=== PATIENT | female | born 1995 | race Caucasian/White ===

== ENCOUNTER 2018-05-30 23:48 | Emergency (ER) | payer OTHER ==
[~2018-05-30] VITALS: Ht 167.6 cm; Wt 140.6 kg
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
[2018-05-31] MEDS ORDERED: HYDROmorphone 2 MG/ML, 1ML ONE (00:29)
[2018-05-31] MEDS ORDERED: ONDANSETRON ODT 4 MG ONE (00:29)
[2018-05-31] MEDS ORDERED: KETOROLAC 30 MG/1 ML ONE (00:29)
[2018-05-31] MEDS ORDERED: KETOROLAC 30 MG/1 ML IM ONE (00:30)
[2018-05-31] MEDS ORDERED: HYDROmorphone 1 MG/ML, 1ML IM ONE (00:30)
[2018-05-31] MEDS ORDERED: ONDANSETRON ODT 4 MG PO ONE (00:30)
[2018-05-31 00:35] LABS: BASOPHILS # (AUTO) 0.06 x10^3/uL (0-0.1); BASOPHILS % (AUTO) 0 % (0-1); EOSINOPHILS # (AUTO) 0.26 x10^3/uL (0-0.4); EOSINOPHILS % (AUTO) 2 % (1-7); LYMPHOCYTES % (AUTO) 27 % (22-44); MD NO; MEAN CORPUSCULAR HEMOGLOBIN 23.7 pg (27.0-34.8); MEAN CORPUSCULAR HGB CONC 32.2 g/dL (32.4-35.8); MEAN CORPUSCULAR VOLUME 73.7 fL (80-100); MEAN PLATELET VOLUME 7.1 fL (7.4-10.4); MONOCYTES # (AUTO) 1.32 x10^3/uL (0.2-0.8); MONOCYTES % (AUTO) 7 % (2-9); NEUTROPHILS % (AUTO) 64 % (42-75); PLATELET COUNT 504 x10^3/uL (130-400); RED BLOOD COUNT 5.25 x10^6/uL (3.82-5.3); RED CELL DISTRIBUTION WIDTH 18.2 % (9.6-15.2)
--- NOTE | 2018-05-31 00:43 | NUR ---
PT AMBULATORY TO RESTROOM WITH STEADY GAITN FOR UA SAMPLE. TO MEDICATE UPON RETURN FOR PAIN
[2018-05-31 00:51] LABS: ALANINE AMINOTRANSFERASE 46 U/L (12-78); ALBUMIN 3.2 g/dL (3.4-5.0); ANION GAP 7 mmol/L (5-15); CALCIUM 8.8 mg/dL (8.5-10.1); CHLORIDE 108 mmol/L (98-107)
[2018-05-31 00:54] LABS: ALKALINE PHOSPHATASE 89 U/L (45-117); BILIRUBIN,TOTAL 0.2 mg/dL (0.2-1.0); TOTAL PROTEIN 8.2 g/dL (6.4-8.2)
--- NOTE | 2018-05-31 00:54 | NUR ---
REPORT FROM [facility]UNC[facility] VENEGAS. UA TAKEN TO LAB. PT RESTING WITH NO NEEDS AT THIS TIME. CALL LIGHT IN REACH
--- NOTE | 2018-05-31 00:54 | NUR ---
PT BACK FROM RESTROOM, CLEAN CATCH UA COLLECTED AND SENT TO LAB. PT MEDICATED NOTED PER ORDER FOR 10/10 LOW BACK PAIN. VSS. CALL LIGHT IN REACH. FALL PRECAUTIONS IN PLACE. FRIENDS AT BEDSIDE. BEDSIDE REPORT AND CARE TO ASHLYN VENEGAS AT THIS TIME.
--- NOTE | 2018-05-31 00:56 | NUR ---
CT PENDING NEG. TEST.
[2018-05-31 01:00] LABS: CULTURE INDICATED? NO; HCG UR SG 1.026 (1.003-1.030); MICROSCOPIC AUTO
[2018-05-31 02:01] VITALS: BP 146/91
--- NOTE | 2018-05-31 02:02 | NUR ---
Patient given discharge instructions and they have confirmed that they understand the instructions. Patient ambulatory with steady gait.
== END 2018-05-31 02:05 | disposition home or self-care (01) ==
LOC: ED 23:59
DX: R31.9 Hematuria, unspecified (principal); I10 Essential (primary) hypertension; Z88.0 Allergy status to penicillin
CPT/HCPCS: 36415; 71045; 74176; 80053; 81001; 81025; 83690; 85025; 96372; 99284; J1170; J1885; Q0162

== ENCOUNTER 2020-01-21 01:10 | Emergency (ER) | payer OTHER ==
[~2020-01-21] VITALS: Ht 170.2 cm; Wt 140.8 kg
--- NOTE | 2020-01-21 01:32 | NUR ---
THIS TECH DID EKG
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
--- NOTE | 2020-01-21 01:47 | NUR ---
PT TO XRAY
[2020-01-21] MEDS ORDERED: IBUPROFEN 800 MG TABLET PO ONE (03:00)
[2020-01-21] MEDS ORDERED: METHOCARBAMOL 750 MG TABLET PO ONE (03:00)
[2020-01-21] MEDS ORDERED: IBUPROFEN 800 MG TABLET ONE (03:06)
[2020-01-21] MEDS ORDERED: METHOCARBAMOL 750 MG TABLET ONE (03:06)
[2020-01-21 03:23] VITALS: BP 125/63
== END 2020-01-21 03:51 | disposition home or self-care (01) ==
LOC: ED 01:40
DX: R07.89 Other chest pain (principal); R00.0 Tachycardia, unspecified
CPT/HCPCS: 71046; 93005; 99283